=== PATIENT | female | born 1960 | race Caucasian/White ===

== ENCOUNTER → 2018-12-27 | Outpatient (CLI) | payer OTHER | LOC: M.RAD 11-23 10:42 | DX: Z12.31 Encounter for screening mammogram for malignant neoplasm of breast (principal); M85.88 Other specified disorders of bone density and structure, other site ==

== ENCOUNTER → 2019-03-02 | Outpatient (CLI) | payer OTHER | LOC: M.RAD 15:08 | DX: M21.172 Varus deformity, not elsewhere classified, left ankle (principal); M21.171 Varus deformity, not elsewhere classified, right ankle; M77.52 Other enthesopathy of left foot and ankle; M77.51 Other enthesopathy of right foot and ankle; Z98.890 Other specified postprocedural states ==